=== PATIENT | male | born 1960 | race Asian ===

== ENCOUNTER 2020-02-20 16:37 | Emergency (ER) | payer BC ==
[~2020-02-20] VITALS: Ht 165.1 cm; Wt 71.2 kg
[2020-02-20 17:17] VITALS: Ht 165.1 cm; Wt 71.2 kg
[2020-02-20 18:54] VITALS: BP 127/73
== END 2020-02-20 18:54 | disposition home or self-care (01) ==
LOC: ED 16:37
DX: M54.12 Radiculopathy, cervical region (principal); E78.00 Pure hypercholesterolemia, unspecified
CPT/HCPCS: 99406